=== PATIENT | male | born 1945 | race Caucasian/White ===

== ENCOUNTER → 2016-11-09 | Outpatient (CLI) | payer OTHER ==
[~2016-11-09] VITALS: Ht 182.9 cm; Wt 86.2 kg
[~2016-11-09] MED LIST: ASPI81TA PO; CATHETER FLUSH 10 ML SYR IV PRN; CLPD75T PO; NITR0.3T6 SL; OMG1KC PO; SMV20T PO
[2016-11-09 09:35] VITALS: BP 136/82
[2016-11-09 09:44] VITALS: BP 138/82
[2016-11-09 09:55] VITALS: BP 192/82
[2016-11-09 10:00] VITALS: BP 152/75
--- NOTE | 2016-11-11 13:24 | STRESS TEST ---
DATE OF SERVICE: 11/09/2016 RESTING AND POST-EXERCISE TECHETIUM-99M TETROFOSMIN SPECT CT IMAGING ORDERING PHYSICIAN: RUSSEL Blanco OTHER PHYSICIAN: Dr. Hernandez. CLINICAL DIAGNOSIS: Coronary artery disease. Baseline images were carried out after injection of 10.97 mCi of technetium-99m tetrofosmin. Subsequently, exercise was carried out on a treadmill. Ahmet protocol was employed. Heart rate and blood pressure responses to exercise were normal. A total of 31.2 mCi of technetium-99 tetrofosmin was injected after the patient had achieved target heart rate and the exercise was continued for another minute. The test was stopped on account of fatigue. No significant arrhythmia was seen. He did not report chest discomfort. In the recovery phase, isolated premature atrial and ventricular contractions were seen. In the immediate post-exercise phase, there appeared to be 1.5-2mm upsloping ST segment depression. Review of images at rest and following stress does not indicate any significant perfusion defects consistent with significant myocardial ischemia or infarction. Gated images show normal global left ventricular systolic function with normal regional wall motion. Left ventricular ejection fraction is calculated to be 58%. Left ventricular end-diastolic volume is 94 mL. TID is absent (0.94). CONCLUSIONS: 1. No evidence of any significant myocardial ischemia or infarction on this study. 2. Normal regional wall motion. 3. Normal global left ventricular systolic function with a calculated ejection fraction of 58%. Job ID: [id number] DocumentID: [id number] Dictated Date: 11/11/2016 11:46:17 Exchange Underwriting Consultant Date: 11/11/2016 12:12:25 Dictated By: MANPREET HERNANDEZ MD, MA, FACP, FACC,
== END ==
LOC: CARD 07:43
PROVIDERS: ATTEND Nurse Practitioner Family
DX: I25.10 Atherosclerotic heart disease of native coronary artery without angina pectoris (principal); I65.23 Occlusion and stenosis of bilateral carotid arteries; E78.4 Other hyperlipidemia
CPT/HCPCS: 78452; 93017

== ENCOUNTER → 2018-09-08 | Outpatient (CLI) | payer MEDICARE, OTHER ==
[~2018-09-08] MED LIST changes: -CATHETER FLUSH 10 ML SYR IV PRN
--- NOTE | 2018-09-08 16:33 | Diagnostic Imaging Report ---
INDICATION: Bronchitis. FINDINGS: Lungs are mildly hyperexpanded with symmetrical air trapping. No substantial airway thickening. No interstitial or alveolar infiltrate. No effusion or pneumothorax. IMPRESSION: Clear hyperexpanded lungs. No acute finding apparent. Dictated by: Dictated on workstation # [id number]
== END ==
LOC: RAD 09:59
PROVIDERS: ATTEND Physician Assistant
DX: J40 Bronchitis, not specified as acute or chronic (principal)
CPT/HCPCS: 71046

== ENCOUNTER → 2018-11-15 | Outpatient (CLI) | payer MEDICARE, OTHER ==
--- NOTE | 2018-11-15 10:13 | Diagnostic Imaging Report ---
PROCEDURE: CT sinuses without contrast TECHNIQUE: Multiple contiguous axial images were obtained through the sinuses without the use of intravenous contrast. Coronal and sagittal reformations were then performed. Auto Exposure Controls were utilized during the CT exam to meet ALARA standards for radiation dose reduction. INDICATION: Chronic sinusitis. COMPARISON: None. FINDINGS: There is advanced mucosal thickening throughout the paranasal sinuses. The ostiomeatal units and frontal recesses are occluded. Midline nasal septum. No large denise bullosa. There is opacification of several of the partially visualized mastoid air cells bilaterally. Fluid within both middle ear cavities. IMPRESSION: 1. Advanced mucosal thickening throughout the paranasal sinuses. 2. Fluid within both partially visualized mastoids and middle ears. Dictated by: Dictated on workstation # [id number]
== END ==
LOC: RAD 09:13
PROVIDERS: ATTEND Otolaryngology Otolaryngology/Facial Plastic Surgery
DX: J32.9 Chronic sinusitis, unspecified (principal)
CPT/HCPCS: 70486

== ENCOUNTER 2018-12-11 13:18 | Outpatient (CLI) | payer MEDICARE, OTHER ==
[~2018-12-11] VITALS: Ht 182.9 cm; Wt 82.3 kg
[2018-12-11] MEDS ORDERED: SIMV20TA3 PO (13:29)
[2018-12-11] MEDS ORDERED: ASPI-999 PO (13:29)
[2018-12-11] MEDS ORDERED: OMG1KC PO (13:29)
[2018-12-11 13:34] VITALS: BP 134/78
== END 2018-12-11 14:24 | disposition home or self-care (01) ==
LOC: PREOP 13:18
PROVIDERS: ATTEND Otolaryngology Otolaryngology/Facial Plastic Surgery
DX: Z01.818 Encounter for other preprocedural examination (principal)
CPT/HCPCS: 87081

== ENCOUNTER 2018-12-14 06:06 | Day surgery (SDC) | payer MEDICARE, OTHER ==
[2018-12-14] VITALS (10 sets, daily range): BP systolic 135–169; BP diastolic 77–100
[~2018-12-14] VITALS: Ht 182.9 cm; Wt 82.3 kg
[~2018-12-14 06:06] MED LIST changes: +ASPI-999 PO; +SIMV20TA3 PO
[2018-12-14] MEDS ORDERED: LACTATED RINGERS 1,000 ML IV PRN (06:09)
--- OUTSIDE RECORDS SUMMARY | 2018-12-14 06:10 | XMS REPORT | Clinical Summary ---
Author Author [facility] Organization [facility] Address Unknown Phone Unavailable Care Team Providers Care Acid Condenser Name Role Phone Marcy Troncoso RN Unavailable Unavailable Stanislav Garcia MD Unavailable Mychart, Generic Provider Unavailable Unavailable Maite Matos PA-C Unavailable Valentino Gabriel MD Unavailable Cortez Carrington MD Unavailable Jaren Gabriel [facility] Unavailable Unavailable Idalia CherryD Unavailable Unavailable Unknown, Unknown Md PCP Unavailable Source Comments Some departments are not documenting in the electronic medical record. If you d o not see the information that you expected, contact Release of Information in [facility] department at [phone] for further assistan ce in locating additional records.[facility] Allergies No Known Allergies Medications End Date Status Medication Sig Dispensed Refills Start Date Active simvastatin (ZOCOR) 20 mg Take 20 mg by 0 tablet mouth at bedtime daily. Active DOCOSAHEXANOIC ACID/EPA Take by 0 (FISH OIL PO) mouth. Active ASPIRIN (ASPIR-81 PO) Take by 0 mouth. Active Problems Problem Noted Date Prostate cancer 10/01/2014 Cancer Staging: Clinical: Stage IV (TX, N1, M0) - Signed by Cortez Carrington MD on 07/04/2015 Overview: Mr. Clark is here for a followup of his PSA recurrent, hormone sensitive prostate cancer possibly with local shaan involvement by [id number] scan. His history of prostate cancer dates to late 2009 when his PSA level was around 6.2 and subsequently in June of 2010, it was 8.8. He did have a biopsy May 2010, that showed Damascus 3+4 equals 7 and he ultimately had a prostatectomy done, I believe in [place], [place] and he had a Damascus 3+5 equaling 8, pathologic T2c prostate cancer. He keeps meticulous records and he brought in levels and his PSA level did become nondetectable, but then was slowly rising late in 2010. He had a PSA level of 0.05 by February 2012, and he did undergo a course of radiation to the prostate bed. Subsequently, his PSA fell again undetectable, but started to rise throughout 2014, and had actually gone up to 1.33 on December 23, that is when he had a M28-Oowhkva scan, that suggested possible local adenopathy. He started Casodex 01/07/2015 and had Lupron 01/09/2015. His PSA did fall again to an undetectable level of less than 0.01 on March 31, 2015, when he had a 2nd Lupron shot. He has also had an opinion at [facility]. Further local therapy, such as radiation or surgery to the nodes was apparently contemplated, but it was ultimately felt not to be the best course of action. Intermittent androgen deprivation was previously discussed and he had his last lupron shot on 07/04/15. He has remained off Lupron and his PSA levels have not risen. His PSA levels have remained low. He did labs locally in [facility] December 11, 2018 and PSA remained 0 and the remainder of his CBC and metabolic panel were unrevealing. L ast Assessment & Plan: 1. Hormone-sensitive prostate cancer with possible local nodes by C-11 acetate scan. Clinically, he has been stable and repeat labs are pending, but suspect we will continue observation. I think is done very well given the duration of response off hormones already which portends a better prognosis. At this point I think he can get by with checking PSAs every 2 or 3 months and I will see him back in a year. I told him the indications to resume therapy would probably be a PSA approaching 1 and if that happen I would probably want to consider restaging as well. He has voiced understanding the discussion and provided his PSA level remains low we will see him back annually. He can call in the interim if there are any other changes. Family History Medical History Relation Name Comments Cancer Daughter Lymphoma Cancer-Prostate Father Cancer-Ovarian Maternal Grandmother Cancer Maternal Uncle Relation Name Status Comments Daughter Father Maternal Grandmother Maternal Uncle Social History Date Tobacco Use Types Packs/Day Years Used Never Smoker Smokeless Tobacco: Never Used Drinks/Week oz/Week Comments Alcohol Use 0 Standard drinks or equivalent 0.0 No Sex Assigned at Date Recorded Not on file Industry Job Start Date Occupation Not on file Not on file Not on file Travel End Travel History Travel Start No recent travel history available. Last Filed Vital Signs Reading Time Taken Comments Vital Sign 137/93 04/17/2018 9:54 AM [employer]ILL[employer] TE[employer] Blood Pressure 83 04/17/2018 9:54 AM LIFE SKILL[employer] TEACHER Pulse 36.7 C (98.1 F) 04/17/2018 9:54 AM LIFE SKILL[employer] TEACHER Temperature 14 04/17/2018 9:54 AM LIFE SKILLS TEACHER Respiratory Rate 95% 04/17/2018 9:54 AM LIFE SKILLS TEACHER Oxygen Saturation - - Inhaled Oxygen Concentration 86.3 kg (190 lb 3.2 oz) 04/17/2018 9:54 AM LIFE SKILLS TEACHER Weight 180.3 cm (5' 11") 04/17/2018 9:54 AM LIFE SKILLS TEACHER Height 26.53 04/17/2018 9:54 AM LIFE SKILLS TEACHER Body Mass Index Plan of Treatment Health Maintenance Due Date Last Done Comments PHYSICAL (COMPREHENSIVE) 10/16/1950 EXAM DTAP/TDAP VACCINES (1 - 10/16/1961 Tdap) COLORECTAL CANCER 10/16/1993 SCREENING SHINGLES RECOMBINANT 10/16/1993 VACCINE (1 of 2) PNEUMONIA (PCV13/PPSV23) 10/16/2008 VACCINES (1 of 2 - PCV13) INFLUENZA VACCINE 03/06/2019 Results Not on filefrom Last 3 Months Insurance Type Payer Benefit Subscriber ID Effective Phone Address Plan / Dates Group Medicare MEDICARE MEDICARE xxxxxxxxxxx 2008-P PART A AND resent B Indemnity [employer] xxxxxxxxxx 2016-P FIDELITY resent 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
--- OUTSIDE RECORDS SUMMARY | 2018-12-14 06:10 | XMS REPORT | Continuity of Care Document ---
Author Organization Unknown Address Unknown Allergies Active Description Code Type Severity Reaction Onset Reported/Identified Relationship to Patient Clinical Status Yes No Known Drug Allergies [id number] Drug Allergy Unknown N/A 12/11/2018 Medications There is no data. Problems Date Dx Coded Attending Type Code Diagnosis Diagnosed By 05/23/2012 Ot 185 MALIGN NEOPL PROSTATE 05/23/2012 Ot V58.0 ENCOUNTER FOR RADIOTHERAPY 09/10/2012 Ot 185 MALIGN NEOPL PROSTATE 07/08/2014 HOMERO DYER, AQUILES E Ot 185 07/08/2014 HOMERO DYER, AQUILES E Ot 185 07/08/2014 HOMERO DYER, AQUILES E Ot 185 07/08/2014 HOMERO DYER, AQUILES E Ot 185 10/11/2014 HOMERO DYER, AQUILES E Ot 185 05/26/2015 HOMERO DYER, AQUILES E Ot 185 05/26/2015 LATONYA LYNCH TREE PLANTER Ot 414.01 05/26/2015 LATONYA LYNCH TREE PLANTER Ot 414.01 06/09/2015 HOMERO DYER, AQUILES E Ot 185 06/09/2015 LATONYA LYNCH TREE PLANTER Ot 414.01 06/09/2015 LATONYA LYNCH TREE PLANTER Ot 414.01 01/16/2016 HOMERO DYER, AQUILES E Ot 185 MALIGN NEOPL PROSTATE 01/16/2016 LATONYA LYNCH TREE PLANTER Ot 414.01 CORONARY ATHEROSCLEROSIS OF [place] CORON 01/16/2016 LATONYA LYNCH TREE PLANTER Ot 414.01 CORONARY ATHEROSCLEROSIS OF [place] CORON 10/18/2016 HOMERO DYER, AQUILES E Ot 185 MALIGN NEOPL PROSTATE 10/18/2016 LATONYA LYNCH TREE PLANTER Ot 414.01 CORONARY ATHEROSCLEROSIS OF [place] CORON 10/18/2016 LATONYA LYNCH TREE PLANTER Ot 414.01 CORONARY ATHEROSCLEROSIS OF [place] CORON 11/04/2016 AQUILES VALENTIN MD E Ot 185 MALIGN NEOPL PROSTATE 11/04/2016 LATONYA LYNCH TREE PLANTER Ot 414.01 CORONARY ATHEROSCLEROSIS OF [place] CORON 11/04/2016 BAIMA, LATONYA L TREE PLANTER Ot 414.01 CORONARY ATHEROSCLEROSIS OF [place] CORON 11/04/2016 HOMERO DYER, AQUILES E Ot 185 MALIGN NEOPL PROSTATE 11/04/2016 CRIS LATONYA L TREE PLANTER Ot 414.01 CORONARY ATHEROSCLEROSIS OF [place] CORON 11/04/2016 CRIS LATONYA L TREE PLANTER Ot 414.01 CORONARY ATHEROSCLEROSIS OF [place] CORON 11/05/2016 HOMERO DYER, AQUILES E Ot 185 MALIGN NEOPL PROSTATE 11/05/2016 LATONYA LYNCH L TREE PLANTER Ot 414.01 CORONARY ATHEROSCLEROSIS OF [place] CORON 11/05/2016 BAIMARGARITO LATONYA L TREE PLANTER Ot 414.01 CORONARY ATHEROSCLEROSIS OF [place] CORON 11/09/2016 HOMERO DYER, AQUILES Johnson Ot 185 MALIGN NEOPL PROSTATE 11/09/2016 LATONYA LYNCH L TREE PLANTER Ot 414.01 CORONARY ATHEROSCLEROSIS OF [place] CORON 11/09/2016 CRIS LATONYA L TREE PLANTER Ot 414.01 CORONARY ATHEROSCLEROSIS OF [place] CORON 04/29/2017 LATONYA LYNCH L TREE PLANTER Ot E78.4 OTHER HYPERLIPIDEMIA 04/29/2017 LATONYA LYNCH L TREE PLANTER Ot I25.10 ATHSCL HEART DISEASE OF [place] CORONARY 04/29/2017 LATONYA LYNCH TREE PLANTER Ot I65.23 OCCLUSION AND STENOSIS OF BILATERAL MERR[place] 09/09/2018 KAREN FRANK Ot J40 BRONCHITIS, NOT SPECIFIED ACUTE OR CH 09/29/2018 KAREN FRANK Ot J40 BRONCHITIS, NOT SPECIFIED ACUTE OR CH 11/19/2018 RANDAL FREEMAN MD Ot J32.9 CHRONIC SINUSITIS, UNSPECIFIED 12/11/2018 RANDAL FREEMAN MD Ot J32.9 CHRONIC SINUSITIS, UNSPECIFIED 12/12/2018 RANDAL FREEMAN MD Ot Z01.818 ENCOUNTER FOR OTHER PREPROCEDURAL EXAMIN Procedures There is no data. Results Test Result Range Methicillin resistant Staphylococcus aureus (MRSA) screening culture - 12/11/18 14:00 Methicillin resistant Staphylococcus aureus (MRSA) screening culture NEG NRG Encounters ACCT No. Visit Date/Time Discharge Status Pt. Type Provider Facility Loc./Unit Complaint [id number] 12/11/2018 13:18:00 12/11/2018 14:24:00 DIS Outpatient RANDAL FREEMAN MD [facility] PREOP CHRONIC SINUSITIS,CHRONIC OTITIS MEDIA [id number] 11/15/2018 09:13:00 11/15/2018 23:59:59 CLS Outpatient PETE DYER, RANDAL Quinn [facility] RAD CHRONIC SINUSITIS [id number] 09/08/2018 09:59:00 09/08/2018 23:59:59 CLS Outpatient KAREN FRANK [facility] RAD FAILED OP ANTIBIOTIC [id number] 11/09/2016 07:43:00 11/09/2016 23:59:59 CLS Outpatient LATONYA LYNCH [facility] CARD I25.10 [id number] 07/08/2014 10:23:00 07/08/2014 23:59:59 CLS Outpatient HOMERO DYER, AQUILES Johnson [facility] ONC NEW CONSULT [id number] 11/09/2012 07:40:00 11/09/2012 23:59:59 CLS Outpatient LATONYA LYNCH [facility] RAD CAD [id number] 10/12/2012 07:40:00 10/12/2012 23:59:59 CLS Outpatient LATONYA LYNCH [facility] RAD CAD, [id number] 12/11/2018 13:24:00 Document Registration [id number] 06/12/2012 07:48:00 Document Registration [id number] 05/04/2012 07:51:00 Document Registration
--- OUTSIDE RECORDS SUMMARY | 2018-12-14 06:10 | XMS REPORT | Encounter Summary ---
Author Author [facility] Organization [facility] Address Unknown Phone Unavailable Care Team Providers Care Buggy Driver Name Role Phone Marcy Troncoso RN Unavailable Unavailable Stanislav Garcia MD Unavailable Mychart, Generic Provider Unavailable Unavailable Maite Matos PA-C Unavailable Valentino Gabriel MD Unavailable Cortez Carrington MD Unavailable Jaren Gabriel [facility] Unavailable Unavailable Idalia Cherry PHARMD Unavailable Unavailable Unknown, Unknown Md PCP Unavailable Encounter Details Care Team Description [place] [address] [place] [address] Prostate cancer (HCC) (Primary Dx) 09/12/2018 Orders Only [facility] [address] [place] [address] Social History Date Tobacco Use Types Packs/Day Years Used Never Smoker Smokeless Tobacco: Never Used Drinks/Week oz/Week Comments Alcohol Use 0 Standard drinks or equivalent 0.0 No Sex Assigned at Date Recorded Not on file Industry Job Start Date Occupation Not on file Not on file Not on file Travel End Travel History Travel Start No recent travel history available. documented as of this encounter Functional Status Date of Assessment Functional Status Response 04/18/2017 Does the patient have a hearing impairment: No 04/18/2017 Does the patient have a visual impairment: No 04/18/2017 Does the patient have impaired ambulation: No 04/18/2017 Does the patient have an activity of daily living No (ADL) impairment: 04/18/2017 Does the patient have an instrumental activity of No daily living (IADL) impairment: Date of Assessment Cognitive Status Response 04/18/2017 Does the patient have a cognitive impairment: No documented as of this encounter Progress Notes * Erin Loyd RN - 09/12/2018 10:19 AM CDT New standing order faxed to [facility] for PSA every 8 weeks. Previous standing order will on 09-16-18. [facility] [address], [address] [place] [address] Attn: Annette documented in this encounter Plan of Treatment Not on filedocumented as of this encounter Visit Diagnoses Diagnosis Prostate cancer (HCC) - Primary Malignant neoplasm of prostate documented in this encounter
[2018-12-14] MEDS ORDERED: AMPICILLIN/SULBACTAM INJECTION 1.5 GM in NS (IVPB) 100 ML IV ONE (06:15)
[2018-12-14] MEDS ORDERED: HYDROCORTISONE 100 MG/2 ML (Solu-CORTEF) VIAL IV ONE (06:15)
[2018-12-14] MEDS ORDERED: LIDOCAINE PF 2% 5 ML (XYLOCAINE) VIAL ONE (06:54)
[2018-12-14] MEDS ORDERED: proPOfol 200 MG/20 ML (DIPRIVAN) VIAL IV ONE (06:54)
[2018-12-14] MEDS ORDERED: fentaNYL INJECTION 100 MCG/2 ML AMP ONE (06:54)
[2018-12-14] MEDS ORDERED: MIDAZOLAM 2 MG/2 ML (VERSED) VIAL ONE (06:55)
[2018-12-14] MEDS ORDERED: DEXAMETHASONE 10 MG/ML (DECADRON) 1 ML VIAL ONE (06:57)
[2018-12-14] MEDS ORDERED: SEVOFLURANE (ULTANE) 15 ML INHAL SOLN ONE (06:57)
[2018-12-14] MEDS ORDERED: ONDANSETRON 4 MG/2 ML (SDV) Z0FRAN ONE (06:57)
[2018-12-14] MEDS ORDERED: PHENYLEPHRINE 0.5% NASAL SPR (NEO-SYNEPHRINE) REG ONE (07:01)
[2018-12-14] MEDS ORDERED: BSS 15 ML ONE (07:01)
[2018-12-14] MEDS ORDERED: LIDOCAINE/EPI 1%-1:100,000 (XYLOCAINE) 20ML ONE ×2 (07:01→08:50)
[2018-12-14] MEDS ORDERED: COCAINE HCL 4% 2 ML SYR ONE (07:01)
--- NOTE | 2018-12-14 07:11 | Progress Note-Pre Operative ---
Pre-Operative Progress Note H&P Reviewed The H&P was reviewed, patient examined and no changes noted. Date Seen by Provider: Dec 14, 2018 Time Seen by Provider: 06:30 Date H&P Reviewed: Dec 14, 2018 Time H&P Reviewed: 06:30 Pre-Operative Diagnosis: Bilat Chronic Sinusitis, MECHE, HYper Inf Turbs, Dev Septum RANDAL FREEMAN MD Dec 14, 2018 07:11
[2018-12-14] MEDS ORDERED: ROCURONIUM 10 MG/ML 5 ML SYRINGE IV ONE (07:21)
[2018-12-14] MEDS ORDERED: GLYCOPYRROLATE 0.2 MG/ML (ROBINUL) 2 ML VIAL ONE (09:22)
[2018-12-14] MEDS ORDERED: NEOSTIGMINE 3 MG/3 ML VIAL ONE (09:22)
--- NOTE | 2018-12-14 09:36 | Progress Note-Post Operative ---
Post-Operative Progess Note Surgeon (s)/Manager Of Environmental Services (s) Surgeon RANDAL FREEMAN MD Manager Of Environmental Services n/a Pre-Operative Diagnosis Bilat Chronic Sinusitis, MECHE, HYper Inf Turbs, Dev Septum Post-Operative Diagnosis same Post-Op Procedure Note Date of Procedure: Dec 14, 2018 Name of Procedure Performed: Bilat ESS, Nasal Septoplasty, Bialt Red of Inf Turbs, BMT Description & Findings Description and Findings: n/a Anesthesia Type get Estimated Blood Loss 100cc Packing dNP bialterally. Specimen(s) collected/removed bialt chornic sinus disease RANDAL FREEMAN MD Dec 14, 2018 09:36
[2018-12-14] MEDS ORDERED: D5 1/2 NS W/KCL 20 MEQ/L 1,000 ML IV SCH (09:37)
[2018-12-14] MEDS ORDERED: HYDROcodone/APAP 5 MG/325 MG (LORTAB) TAB PO PRN (09:45)
[2018-12-14] MEDS ORDERED: PROMETHAZINE INJ 25 MG/ML (PHENERGAN) AMP IVP PRN (09:45)
[2018-12-14] MEDS ORDERED: ACETAMINOPHEN 325 MG TABLET PO PRN (09:45)
[2018-12-14] MEDS ORDERED: ONDANSETRON 4 MG/2 ML (SDV) Z0FRAN IVP PRN (09:45)
[2018-12-14] MEDS ORDERED: predniSONE 20 MG TAB PO ONE (09:45)
[2018-12-14] MEDS ORDERED: morphine INJ 10 MG/ML 1ML (SYR OR VIAL) IVP ONE (09:45)
--- NOTE | 2018-12-14 10:39 | Anesthesia-General Post-Op ---
General Patient Condition Mental Status/LOC: Same as Preop Cardiovascular: Satisfactory Nausea/Vomiting: Absent Respiratory: Satisfactory Pain: Controlled Complications: Absent Post Op Complications Complications None Follow Up Care/Instructions Patient Instructions None needed. Anesthesia/Patient Condition Patient Condition Patient is doing well, no complaints, stable vital signs, no apparent adverse anesthesia problems. No complications reported per nursing. GOSIA LERNER CRNA Dec 14, 2018 10:39
[2018-12-14] MEDS ORDERED: PRD20T PO (10:52)
[2018-12-14] MEDS ORDERED: AMOX500C2 PO (10:52)
[2018-12-14] MEDS ORDERED: HYDR-3812 PO (10:52)
[2018-12-14] MEDS ORDERED: GENT5DRO30 EACH EAR (10:52)
== END 2018-12-14 11:35 | disposition home or self-care (01) ==
LOC: SDC 06:06
PROVIDERS: ATTEND Otolaryngology Otolaryngology/Facial Plastic Surgery
DX: J32.4 Chronic pansinusitis (principal); H65.23 Chronic serous otitis media, bilateral; J34.2 Deviated nasal septum; J34.89 Other specified disorders of nose and nasal sinuses; R09.81 Nasal congestion; H90.6 Mixed conductive and sensorineural hearing loss, bilateral; E78.5 Hyperlipidemia, unspecified; Z79.82 Long term (current) use of aspirin; Z79.899 Other long term (current) drug therapy

== ENCOUNTER → 2019-01-25 | Outpatient (CLI) | payer MEDICARE, OTHER ==
[~2019-01-25] MED LIST changes: +AMOX500C2 PO; +GENT5DRO30 EACH EAR; +HYDR-3812 PO; +PRD20T PO
--- NOTE | 2019-01-25 14:09 | Diagnostic Imaging Report ---
INDICATION: Cough EXAMINATION: PA and lateral views of the chest. FINDINGS: The heart size and vascularity are normal. Lungs are clear. There is no effusion. There is no acute bony abnormality. IMPRESSION: No acute abnormality is seen. There is no change from 09/08/2018. Dictated by: Dictated on workstation # [id number]
== END ==
LOC: RAD 13:30
PROVIDERS: ATTEND Internal Medicine
DX: R05 Cough (principal)
CPT/HCPCS: 71046

== ENCOUNTER → 2020-01-09 | Outpatient (CLI) | payer MEDICARE, OTHER ==
[~2020-01-09] MED LIST changes: +ACHD5005 PO; -HYDR-3812 PO; +SIMV20TA26 PO; -SIMV20TA3 PO
--- NOTE | 2020-01-09 16:46 | Diagnostic Imaging Report ---
INDICATION: Left ankle pain. COMPARISON: None available. TECHNIQUE: Three views of the left ankle were obtained. FINDINGS: There appears to be a small ankle joint effusion present. No fracture or osseous erosions. The joint spaces are well-preserved. Scattered vascular calcifications. IMPRESSION: 1. No acute osseous abnormality about the left ankle. 2. Probable small ankle joint effusion. Dictated by: Dictated on workstation # [id number]
== END ==
LOC: RAD 15:55
PROVIDERS: ATTEND Physician Assistant
DX: M25.572 Pain in left ankle and joints of left foot (principal)
CPT/HCPCS: 73610

== ENCOUNTER → 2020-07-01 | Outpatient (CLI) | payer MEDICARE, OTHER ==
--- NOTE | 2020-07-01 12:40 | Diagnostic Imaging Report ---
EXAMINATION: CT head without contrast. TECHNIQUE: Multiple contiguous axial images were obtained through the brain without the use of intravenous contrast. All CT scans use one or more of the following dose optimizing techniques: automated exposure control, MA and/or KvP adjustment based on a patient size and exam type, or iterative reconstruction. HISTORY: Headache. Concussion on 02/07/2020. COMPARISON: None available. FINDINGS: No large acute territorial ischemia, mass, or hemorrhage. No midline shift or mass effect. The ventricles, cortical sulci, and basilar cisterns are patent and unremarkable. The orbits are normal. Paranasal sinuses are normal. Mastoid air cells are clear. No soft tissue abnormality is seen. No osseus lesions or fractures are seen. IMPRESSION: 1. No large acute territorial ischemia, mass, or hemorrhage. Dictated by: Dictated on workstation # [id number]
== END ==
LOC: RAD 12:45
PROVIDERS: ATTEND Internal Medicine
DX: R51.9 Headache, unspecified (principal)
CPT/HCPCS: 70450

== ENCOUNTER → 2021-02-03 | Outpatient (CLI) | payer MEDICARE, OTHER ==
[~2021-02-03] VITALS: Ht 182 cm; Wt 84.0 kg
[~2021-02-03] MED LIST changes: +CATHETER FLUSH 10 ML SYR IV PRN; +REGADENOSON 0.4 MG/5 ML SYR (LEXISCAN) IV ONE
[2021-02-03 12:55] VITALS: BP 141/88
--- NOTE | 2021-02-04 10:00 | STRESS TEST ---
DATE OF SERVICE: 02/03/2021 RESTING AND POST REGADENOSON TECHNETIUM-99M TETROFOSMIN SPECT CT IMAGING ORDERING PHYSICIAN: Dr. Hernandez. PRIMARY PHYSICIAN: Dr. Gallardo. CLINICAL DIAGNOSES: Coronary artery disease. Baseline images were carried out after injection of 10.57 mCi of technetium-99m Tetrofosmin. This was followed by 0.4 mg regadenoson and 30.3 mCi of technetium-99m Tetrofosmin for stress imaging. The electrocardiogram showed sinus rhythm with subtle nonspecific ST abnormality at baseline. It did not change significantly with regadenoson infusion. Rare premature ventricular contractions were seen. The patient tolerated the procedure well. Review of images at rest and following stress does not indicate any distinct perfusion defects consistent with significant myocardial ischemia or infarction. Some degree of diaphragmatic attenuation of the inferior wall is seen both at rest and following regadenoson infusion. Gated images show normal global left ventricular systolic function with normal regional wall motion, including the diaphragmatic wall of the left ventricle. Left ventricular ejection fraction is calculated to be 52%. CONCLUSIONS: 1. No evidence of any significant myocardial ischemia or infarction on this study. 2. Normal regional wall motion. 3. Normal global left ventricular systolic function with a calculated ejection fraction of 52%. Job ID: [id number] DocumentID: [id number] Dictated Date: 02/04/2021 08:24:19 Satellite Project Site Monitor Date: 02/04/2021 09:59:51 Dictated By: MANPREET HERNANDEZ MD, MA, FACP, FACC,
== END ==
LOC: CARD 10:30
PROVIDERS: ATTEND Internal Medicine Cardiovascular Disease
DX: I34.0 Nonrheumatic mitral (valve) insufficiency (principal); I51.7 Cardiomegaly; I25.10 Atherosclerotic heart disease of native coronary artery without angina pectoris
CPT/HCPCS: 78452; 93017; 93306; A9502

== ENCOUNTER → 2022-05-21 | Outpatient (CLI) | payer MEDICARE, OTHER ==
[~2022-05-21] MED LIST changes: -CATHETER FLUSH 10 ML SYR IV PRN; -REGADENOSON 0.4 MG/5 ML SYR (LEXISCAN) IV ONE
--- NOTE | 2022-05-21 11:50 | Diagnostic Imaging Report ---
PROCEDURE: CT abdomen and pelvis without contrast. TECHNIQUE: Multiple contiguous axial images were obtained through the abdomen and pelvis without the use of intravenous contrast. Auto Exposure Controls were utilized during the CT exam to meet ALARA standards for radiation dose reduction. INDICATION: Gross hematuria. COMPARISON: No prior studies are available for comparison. FINDINGS: The lung bases are clear. The liver is unremarkable. There is a small stone in the gallbladder. No biliary ductal dilatation is seen. Pancreas and spleen are unremarkable. No adrenal mass is detected. Kidneys are unremarkable apart from a low-attenuation lesion in the upper pole of the left kidney measuring 3.7 cm and most consistent with a cyst. No ureteral calculi or hydronephrosis is seen. Aorta is nonaneurysmal. The bladder is decompressed. There are postop changes in the pelvis. There are postop changes from prostatectomy. The bowel loops are normal in caliber. There is moderate stool in the colon. There is no bowel obstruction. There is no free fluid or fluid collection. No inflammatory changes are seen. Bony structures are nonacute. IMPRESSION: 1. Left renal cyst. No urinary tract calculi or obstruction is seen. 2. Status post prostatectomy. Dictated by: Dictated on workstation # [id number]
== END ==
LOC: RAD 11:01
PROVIDERS: ATTEND Urology
DX: N28.1 Cyst of kidney, acquired (principal); Z90.79 Acquired absence of other genital organ(s)
CPT/HCPCS: 74176